=== PATIENT | female | born 1935 | race Asian ===

== ENCOUNTER 2020-01-25 09:55 | Emergency (ER) | payer OTHER ==
[~2020-01-25] VITALS: Ht 160 cm; Wt 45.5 kg
[2020-01-25] MEDS ORDERED: MULT-1251 PO (10:00)
[2020-01-25] MEDS ORDERED: ACETAMINOPHEN 325 MG TABLET PO ONE (10:15)
[2020-01-25 10:55] VITALS: BP 131/88
== END 2020-01-25 11:12 | disposition home or self-care (01) ==
LOC: EMS 10:07
DX: S40.011A Contusion of right shoulder, initial encounter (principal); W19.XXXA Unspecified fall, initial encounter; Y93.89 Activity, other specified; Y92.89 Other specified places as the place of occurrence of the external cause; Y99.8 Other external cause status

== ENCOUNTER 2022-01-17 07:26 | Emergency (ER) | payer MEDICARE, OTHER ==
[~2022-01-17] VITALS: Ht 154.9 cm; Wt 45.5 kg
[~2022-01-17 07:26] MED LIST: MULT-1251 PO
[2022-01-17 11:05] VITALS: BP 128/77
[2022-01-17] MEDS ORDERED: DEXAMETHASONE SOD PHOS 4 MG/ML VIAL IM ONE (11:45)
[2022-01-17] MEDS ORDERED: DEXAMETHASONE 4 MG TABLET PO ONE ×2 (12:00→12:15)
[2022-01-17] MEDS ORDERED: PRED-729 PO (12:07)
== END 2022-01-17 12:25 | disposition home or self-care (01) ==
LOC: EMS 07:26
DX: L50.9 Urticaria, unspecified (principal); Z98.890 Other specified postprocedural states
CPT/HCPCS: 99283; J8540